=== PATIENT | female | born 1945 | race Caucasian/White ===

== ENCOUNTER 2020-10-13 15:42 | Outpatient (REF) | payer MEDICARE, SELFPAY ==
--- NOTE | ~2020-10-13 | MM_ITS ---
EXAMINATION: MM SCREENING DIGITAL BREAST TOMOSYNTHESIS, BILATERAL CLINICAL INFORMATION: Screening. Asymptomatic. The lifetime risk of breast cancer based on the Tyrer-Cuzick Model is 2%. COMPARISON: Mammography: 01/25/2019, 01/05/2018, 12/22/2016 TECHNIQUE: Digital breast tomosynthesis is performed in both the craniocaudal and mediolateral oblique views along with computer-aided detection (CAD). Synthesized 2D images are generated from the tomosynthesis. FINDINGS: There are scattered areas of fibroglandular density (ACR BI-RADS breast composition Category b). There are no significant masses, abnormal calcifications, or other abnormalities. Parenchymal pattern is similar to prior studies. The skin contours are unremarkable. MM/MM tomosynthesis screening BI IMPRESSION: No mammographic evidence of malignancy. ASSESSMENT: BI-RADS 1: Negative RECOMMENDATION: Routine annual mammography screening. This patient's information was entered into a reminder system with a target due date for their next mammogram.
== END 2020-10-13 15:43 | disposition home or self-care (01) ==
LOC: HO.MAMMO 15:42
PROVIDERS: PCP Internal Medicine; Visit Provider Internal Medicine
DX: Z12.31 Encounter for screening mammogram for malignant neoplasm of breast (principal)
CPT/HCPCS: 77063; 77067

== ENCOUNTER 2022-11-22 11:15 | Outpatient (REF) | payer MEDICARE, SELFPAY ==
--- NOTE | ~2022-11-22 | XR_ITS ---
EXAMINATION: XR SHOULDER, RIGHT CLINICAL INFORMATION: Right shoulder pain COMPARISON: None available. TECHNIQUE: AP external rotation, Grashey, scapular Y, and axillary views of the right shoulder. FINDINGS: There is no evidence of fractures or dislocations. There is narrowing of right glenohumeral joint an as well as degenerative changes in the greater tuberosity with subchondral cysts formation, and there is mild cephalad migration of the right humeral head, most likely due to rotator cuff tear. There are multiple amorphous soft tissue calcifications surrounding right shoulder. Acromioclavicular joint demonstrates no significant degenerative changes. XR/XR shoulder RT min 2V IMPRESSION: 1. 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 2. Multiple amorphous soft tissue calcifications in the right shoulder.
--- NOTE | ~2022-11-22 | XR_ITS ---
EXAMINATION: XR HIP, LEFT CLINICAL INFORMATION: Left hip pain COMPARISON: None available. TECHNIQUE: Two views of the left hip. FINDINGS: Bones and soft tissues are normal. There is minimal marginal spurring of the acetabulum but joint space is preserved. No fracture. Alignment is anatomic. Hip joint space is maintained. XR/XR hip LT min 2V IMPRESSION: Mild degenerative changes in the left hip joint.
== END 2022-11-22 11:16 | disposition home or self-care (01) ==
LOC: HO.XRAY 11:15
PROVIDERS: Visit Provider Internal Medicine
DX: M25.511 Pain in right shoulder (principal); M25.552 Pain in left hip
CPT/HCPCS: 73030; 73502

== ENCOUNTER 2023-03-31 15:37 | Outpatient (REF) | payer MEDICARE, SELFPAY ==
[2023-03-31 17:39] LABS: Appearance Urine Cloudy; Color Urine Yellow; Glucose Urine UA Negative (Negative); Leukocyte Esterase Urine Trace (Negative); Nitrite Urine Negative (Negative); Specific Gravity - Urine 1.015 (1.005-1.025); UMIC TRIGGER UA YES; Urine Blood Small (1+) (Negative); Urine Ketones Negative (Negative); Urine Protein Negative (Neg-Trace)
[2023-03-31 18:01] LABS: Bacteria Urine 4+ (None Seen); Hyaline Casts Urine 0-2 /LPF (0-2); RBC Urine 0-2 /HPF (0-2); Squamous Epithelial Cell Urine >20 /HPF (0-2); WBC Urine 0-5 /HPF (0-5)
== END 2023-03-31 15:38 | disposition home or self-care (01) ==
LOC: HO.CHCLDS 15:37
PROVIDERS: Visit Provider Internal Medicine
DX: N39.490 Overflow incontinence (principal)
CPT/HCPCS: 81001

== ENCOUNTER 2023-10-10 14:41 | Outpatient (REF) | payer MEDICARE, SELFPAY ==
[2023-10-10 16:16] LABS: MANUAL DIFF FLAG NO
[2023-10-10 16:19] LABS: Basophils Percent Auto 0.1 % (0-2); Eosinophils Percent Auto 0.2 % (0-4); Hematocrit 37.3 % (37.0-47.0); Hemoglobin 12.4 g/dl (12.0-16.0); Imm Gran Abs Auto 0.19 X10*3/uL (0.00-0.03); Imm Gran Pct Auto 1.8 % (0.0-0.4); Lymphocytes Absolute Auto 0.9 X10*3/uL (1.2-4.9); Lymphocytes Percent Auto 8.6 % (20-40); Mean Corpuscular HGB Conc 33.2 g/dl (31.0-35.0); Mean Corpuscular Hemoglobin 29.2 pg (27.0-33.0); Mean Corpuscular Volume 87.8 fL (80.0-98.0); Mean Platelet Volume 11.2 fL (9.4-12.3); Monocytes Absolute Auto 0.6 X10*3/uL (0.1-1.2); Monocytes Percent Auto 5.7 % (2-11); Neutrophils Percent Auto 83.6 % (45-73); Platelet Count 255 X10*3/uL (160-400); Red Blood Count 4.25 X10*6/uL (4.20-5.50); Red Cell Distribution Width 15.7 % (11.0-16.0); White Blood Count 10.8 X10*3/uL (4.8-10.8)
[2023-10-10 16:29] LABS: Anion Gap 12 (12-20); Blood Urea Nitrogen 17 mg/dL (9-16); Calcium 9.1 mg/dL (8.4-10.2); Carbon Dioxide 28 mmol/L (22-29); Chloride 103 mmol/L (96-108); Estimated Glomerular Filt Rate 57; Glucose Random 189 mg/dL (60-115); Sodium 139 mmol/L (135-145)
== END 2023-10-10 14:42 | disposition home or self-care (01) ==
LOC: HO.HHCL 14:41
PROVIDERS: Visit Provider Family Medicine
DX: I10 Essential (primary) hypertension (principal)
CPT/HCPCS: 36415; 80048; 85025

== ENCOUNTER 2023-10-31 10:32 | Outpatient (AMB) | payer MEDICARE, SELFPAY ==
--- NOTE | 2023-10-31 10:34 | MHC.OFFVIS ---
Vital Signs 10/31/23 10:41 Height 5 ft 1 in Weight 177 lb BMI 33.4 BP 144/70 H Blood Pressure Location Rt brachial Position Sitting Pulse 57 Intake Visit Reasons: hemorrhoids Intake Note: This patient was referred by for an assessment for hemorrhoids. Pt c/o; reports rectal bleeding, reports LLQ abdominal pain, reports no constipation. Books Binder Required: Yes Books Binder Language: Customer Experience Associate Name: Pt declined automation operator Accompanied by: Daughter Allergies No Known Allergies Allergy (Verified 10/31/23 10:44) Medication List - Last Reconciled 10/31/23 by Trent Smith MD albuterol sulfate 90 mcg/actuation inhalation albuterol sulfate mg inhalation aspirin 81 mg PO DAILY calcium carbonate-vitamin D3 500 mg-10 mcg (400 unit) (Calcium 500 With D) 1 tab PO DAILY fluticasone furoate 100 mcg/actuation (Arnuity Ellipta) 1 inh inhalation DAILY losartan 100 mg PO DAILY meclizine 12.5 mg PO BID HPI HPI hemorrhoids: Details: [age] year old female referred for hemorrhoids. Her daughter says that the patient wears diapers and she notices small amounts of blood on the diaper every day. This has been going for about 1 month. She says that this is not a lot of blood at all. The patient denies any pain or swelling. She denies any discomfort with her hemorrhoids She says that she had hemorrhoid surgery about 8 years ago. [facility] Medical History Internal and external bleeding hemorrhoids Asthma Hypertension Surgical History (Updated 10/31/23 @ 10:59 by Trent Smith MD) History of laparotomy History of hemorrhoidectomy (~10/14/15) Family History Sister Colon cancer Social History Alcohol intake: never Patient Tobacco Use Status: Never used Tobacco Review of Systems Const Denies chills and Denies fever(s) Card Denies chest pain, Denies dyspnea and Denies dyspnea on exertion Resp Denies cough, Denies dyspnea and Denies dyspnea on exertion GI Reports hematochezia and Denies change in bowel habits Denies hematuria Musc Denies back pain and Denies limited range of motion Neuro Denies focal weakness and Denies convulsions Psych Denies depression and Denies mood swings Physical Exam Const General: comfortable and no acute distress Orientation/consciousness: patient oriented x3 Neck Neck: Yes no lymphadenopathy Resp Auscultation: clear to auscultation bilaterally Cardio Rhythm: regular rhythm GI Other: Rectal exam shows hemorrhoids left and right with some prolapse Palpation (GI): Soft to palpation, nontender and no guarding Neuro General: patient oriented x3 Office Procedures Anoscopy She was in lexus-knife position. The anoscope was gently inserted. A full examination of the anal canal was done. She did have internal external hemorrhoids, left and right without bleeding or thrombosis. The internal component seems to prolapse bit. She has no tenderness. There was no induration on digital exam [id number] Assessment & Plan Assessment & Plan (1) Internal and external bleeding hemorrhoids: Code(s): K64.4 - Residual hemorrhoidal skin tags; K64.8 - Other hemorrhoids Category: Medical Plan: She notice small amounts of bright blood on the diaper every day. However, she says that this is not a lot at all. She describes this mostly as some staining. She says that she does not have any pain tenderness or any other discomfort with her hemorrhoids. She does not want to proceed with hemorrhoidectomy. I explained the option of hemorrhoidectomy and I discussed the technique of this procedure. The patient says that her symptoms are minimal. She would like to hold off on any surgical procedure Her daughter understand that they can always come back to the office to be re-evaluated down the line. Coding Level of Care Code New Pt Level 3 (76416) Diagnoses Internal and external bleeding hemorrhoids K64.4; K64.8 CPT Codes Details - CPT: [id number] ([id number])
[2023-10-31 10:41] VITALS: BP 144/70; PULSE 57; BMI 33.4
== END 2023-10-31 11:55 | disposition home or self-care (01) ==
PROVIDERS: PCP Internal Medicine; Referring Provider Internal Medicine; Visit Provider Surgery
DX: K64.8 Other hemorrhoids (principal)
CPT/HCPCS: 46600; 99203

== ENCOUNTER → 2023-10-31 10:32 | Outpatient (BNVA) | payer MEDICARE, SELFPAY | PROVIDERS: PCP Internal Medicine; Referring Provider Internal Medicine; Visit Provider Surgery | DX: K64.4 Residual hemorrhoidal skin tags (principal); K64.8 Other hemorrhoids | CPT/HCPCS: 46600; 99202 ==

== ENCOUNTER 2023-11-17 15:56 | Outpatient (REF) | payer MEDICARE, SELFPAY ==
[2023-11-17 18:18] LABS: Anion Gap 12 (12-20); Blood Urea Nitrogen 14 mg/dL (9-16); Calcium 9.4 mg/dL (8.4-10.2); Carbon Dioxide 27 mmol/L (22-29); Chloride 106 mmol/L (96-108); Estimated Glomerular Filt Rate > 60; Glucose Random 116 mg/dL (60-115); Potassium 3.9 mmol/L (3.3-5.1); Sodium 141 mmol/L (135-145)
== END 2023-11-17 15:57 | disposition home or self-care (01) ==
LOC: HO.CHCLDS 15:56
PROVIDERS: Visit Provider Internal Medicine
DX: I10 Essential (primary) hypertension (principal)
CPT/HCPCS: 36415; 80048

== ENCOUNTER 2024-06-25 10:52 | Outpatient (REF) | payer MEDICARE, SELFPAY ==
[2024-06-25 15:13] LABS: Appearance Urine Clear; Color Urine Yellow; Glucose Urine UA Negative (Negative); Leukocyte Esterase Urine Negative (Negative); Nitrite Urine Negative (Negative); Urine Blood Negative (Negative); Urine Ketones Negative (Negative); Urine Protein Negative (Neg-Trace)
[2024-06-25 15:16] LABS: Bacteria Urine None Seen (None Seen); Hyaline Casts Urine 0-2 /LPF (0-2); RBC Urine 0-2 /HPF (0-2); Squamous Epithelial Cell Urine 0-2 /HPF (0-2); WBC Urine 0-5 /HPF (0-5)
== END 2024-06-25 10:53 | disposition home or self-care (01) ==
LOC: HO.CHCLDS 10:52
PROVIDERS: Visit Provider Internal Medicine
DX: N39.498 Other specified urinary incontinence (principal)
CPT/HCPCS: 81001

== ENCOUNTER 2025-03-20 15:15 | Outpatient (REF) | payer MEDICARE, SELFPAY ==
--- OUTSIDE RECORDS SUMMARY | 2025-03-20 14:30 | XMS_ITS | Encounter Summary ---
Author Organization [employer] Address [address] [facility] [address] [place] [address] Care Team Providers Care Health Occupations Instructor Name Role Phone Daily Packer MD Primary Care Provider [phone] Encounter Details Date Type Department Care Team (Latest Contact Info) Description 03/20/2025 2:30 PM EDT Clinical Support [facility] [address] [place] [address] Encounter for immunization; Routine general medical examination at a health care facility Social History Tobacco Use Types Packs/Day Years Used Date Smoking Tobacco: Never Smokeless Tobacco: Never Depression Answer Date Recorded Patient Health Questionnaire-9 Score 7 02/22/2024 Patient Health Questionnaire-9 Score 7 02/22/2024 Last PHQ-9: Questionnaire Data Not on file 0 02/22/2024 Housing Stability Answer Date Recorded What is your housing situation today? I have cody segura 04/20/[address] you li ve. Do you have problems with any of the following? None of the above 04/20/2023 Food Insecurity Answer Date Recorded Within the past 12 months, y ou worried that your food would run out before you got money to buy more: Never True 04/20/2023 Within the past 12 months,th e food you bought just didn't last and you didn't have enough money to get more: Never True Transportation Answer Date Recorded In the past 12 months, has l ack of transportation kept you from medical appts, meetings, work or from getting things needed for daily living? No 04/20/2023 Utilities Answer Date Recorded In the past 12 months, has t he electric, gas, oil or water company threatened to shut off services in your home? No 04/20/2023 Depression Answer Date Recorded Patient Health Questionnaire-2 Score 3 02/22/2024 Internet Access Answer Date Recorded Internet Access Q1 Yes 03/19/2024 Internet Access Q2 Not on file 03/19/2024 Comments Unknown Sex and Gender Information Value Date Recorded Sex Assigned at Female 05/03/2022 10:20 AM EDT Legal Sex Female 10:20 AM EDT Gender Identity Female 05/03/2022 10:20 AM EDT Sexual Orientation Straight 05/03/2022 10 :20 AM EDT documented as of this encounter Plan of Treatment Upcoming Encounters Date Type Department Care Team (Late st Contact Info) Description 04/01/2025 9:30 AM EDT Office Visit [facility] [address] [place] [address] Daily Packer MD [address] [place] [address] Scheduled Orders Name Type Priority Associated Diagnoses Orde r Schedule T-SPOT .TB Lab Routine Routine general medical examination at a health care facility Expected: 03/20/2025 (Approximate), Expires: 03/20/2026 documented as of this encounter Visit Diagnoses Diagnosis Encounter for immunization Routine general medical examination at a health care facility documented in this encounter Additional Health Concerns Assessment Noted Time PHQ-9 Depression Total Score: 7 02/22/20 24 3:07 PM EDT documented as of this encounter Care Teams Health Occupations Instructor Relationship Specialty Start Date End Date Daily Packer MD [address] [place] [address] PCP - General Internal Medicine 08/09/16 documented as of this encounter
--- OUTSIDE RECORDS SUMMARY | 2025-03-20 18:45 | XMS_ITS | Encounter Summary ---
Author Organization [facility] Address [address] [place] [address] [address], [place] [address] Care Team Providers Care Project Development Engineer Name Role Phone Daily Packer MD Primary Care Provider [phone] Encounter Details Date Type Department Care Team (Late st Contact Info) Description 09/27/2022 Orders Only [facility] [address] [place], [place] [id number] Jennifer Su LPN Social History Tobacco Use Types Packs/Day Years Used Date Smoking Tobacco: Never Assessed Comments Unknown Sex and Gender Information Value Date Recorded Sex Assigned at Female 05/03/2022 10:20 AM EDT Legal Sex Female 10:20 AM EDT Gender Identity Female 05/03/2022 10:20 AM EDT Sexual Orientation Straight 05/03/2022 10 :20 AM EDT COVID-19 Exposure Response Date Recorded In the last 10 days, have yo u been in contact with someone who was confirmed or suspected to have Coronavirus/COVID-19? No / Unsure 09/30/2022 3:15 PM EDT documented as of this encounter Plan of Treatment Upcoming Encounters Date Type Department Care Team (Late st Contact Info) Description 04/01/2025 9:30 AM EDT Office Visit [facility] [address] [place] [address] Daily Packer MD [address] [place] [address] documented as of this encounter Visit Diagnoses Not on filedocumented in this encounter Care Teams Project Development Engineer Relationship Specialty Start Date End Date Daily Packer MD [address] [place] [id number] PCP - General Internal Medicine 08/09/16 documented as of this encounter
--- OUTSIDE RECORDS SUMMARY | 2025-03-20 18:45 | XMS_ITS | Encounter Summary ---
Author Organization [employer] Address [address] [facility] [address] [place] [address] Care Team Providers Care Women'S Garment Fitter Name Role Phone Daily Packer MD Primary Care Provider [phone] Encounter Details Date Type Department Care Team ([facility] st Contact Info) Description 05/18/2023 Orders Only [facility]S [address] [place], [place] [id number] Daily Packer MD [address] [place] [address] Moderate persistent asthma without complication (Primary Dx) Social History Tobacco Use Types Packs/Day Years Used Date Smoking Tobacco: Never Smokeless Tobacco: Never Housing Stability Answer Date Recorded What is your housing situation today? I have codykenny segura 04/20/[address] you [...] off services in your home? No 04/20/2023 Comments Unknown Sex and Gender Information Value Date Recorded Sex Assigned at Female 05/03/2022 10:20 AM EDT Legal Sex Female 10:20 AM EDT Gender Identity Female 05/03/2022 10:20 AM EDT Sexual Orientation Straight 05/03/2022 10 :20 AM EDT documented as of this encounter Plan of Treatment Upcoming Encounters Date Type Department Care Team ([facility] st Contact Info) Description 04/01/2025 9:30 AM EDT [facility] [address] [place] [address] Daily Packer MD [address] [place] [address] documented as of this encounter Visit Diagnoses Diagnosis Moderate persistent asthma without complication- Primary documented in this encounter Care Teams Women'S Garment Fitter Relationship Specialty Start Date End Date Daily Packer MD [address] [place] [address] PCP - General Internal Medicine 08/09/16 documented as of this encounter
--- OUTSIDE RECORDS SUMMARY | 2025-03-20 18:45 | XMS_ITS | Encounter Summary ---
Author Organization [employer] [facility] Address [address] [place] [id number] Care Team Providers Care Platform Power Technician Name Role Phone Daily Packer MD Primary Care Provider [phone] Encounter Details Date Type Department Care Team (Late st Contact Info) Description 02/07/2023 Orders Only [facility] [address] [place] [address] Jennifer Su LPN Social History Tobacco Use Types Packs/Day Years Used Date Smoking Tobacco: Never Smokeless Tobacco: Never Comments Unknown Sex and Gender Information Value [...] Description 04/01/2025 9:30 AM EDT Office Visit [facility] [address] [place] [address] Daily Packer MD [address] [place] [address] documented as of this encounter Visit Diagnoses Not on filedocumented in this encounter Care Teams Platform Power Technician Relationship Specialty Start Date End Date Daily Packer MD [address] [place] [address] PCP - General Internal Medicine 08/09/16 documented as of this encounter
--- OUTSIDE RECORDS SUMMARY | 2025-03-20 18:45 | XMS_ITS | Clinical Summary ---
Author Organization [employer] Address [address] [place] [address] [address] [place] [address] Care Team Providers Care Director Blood Bank Name Role Phone Daily Packer MD Primary Care Provider +1- [phone] Allergies No known active allergies Medications hydroCHLOROthia zide (HYDRODiuril) 12.5 MG tablet TOME SOLEDAD TABLETA TODOS [place] 90 tablet 3 12/02/19 23 Active acetaminophen (Tylenol 8 Hour) 650 MG ER tablet Take 1 tablet by mouth every 6 (six) hours if needed for mild pain. 03/20/20 23 Active docusate sodium (Colace) 100 MG capsule Take 1 capsule by mouth 2 times daily. 03/20/20 23 Active albuterol (2.5 MG/3ML) 0.083% nebulizer solutionIndicat ions:Moderate persistent asthma without complication Take 3 mL (2.5 mg) by nebulization every 4 (four) hours if needed for wheezing. 75 mL 11 06/30/20 23 Active meclizine (Antivert) 12.5 MG tabletIndicatio ns:Dizziness TOME SOLEDAD TABLETA DOS VECES AL D A CUANDO SEA NECESARIO 30 tablet 3 06/30/20 23 Active albuterol (Ventolin HFA) 108 (90 Base) MCG/ACT inhalerIndicati ons:Moderate persistent asthma without complication INHALE 2 PUFF BY INHALATION ROUTE ONCE NEEDED 18 g 11 07/01/20 23 Active Oyster Shell Calcium/D3 500-10 MG-MCG tabletIndicatio ns:Vitamin D deficiency TOME SOLEDAD TABLETA TODOS [place] 90 tablet 4 10/10/19 24 Active fluticasone furoate (Arnuity Ellipta) 100 MCG/ACT inhaler Inhale 1 puff in the morning. Rinse mouth with water after use to reduce aftertaste and incidence of candidiasis. Do not swallow. 1 each 11 10/10/19 24 Active hydrocortisone (Anusol-HC) 2.5 % rectal cream Insert into the rectum 2 times daily. 28 g 3 10/10/19 24 Active Diclofenac Sodium 1 % gelIndications: Moderate persistent asthma without complication To apply to the affected area 3 times a day 100 g 12/12/19 24 Active Aspirin Low Dose 81 MG EC tablet TOME SOLEDAD TABLETA TODOS [place] 90 tablet 3 09/14/19 25 Active losartan (Cozaar) 100 MG tabletIndicatio ns:Essential hypertension TAKE 1 TABLET (100 MG) BY MOUTH ONCE PER DAY. 90 tablet 3 11/06/19 25 Active furosemide (Lasix) 20 MG tabletIndicatio ns:Essential hypertension TAKE 1 TABLET (20 MG) BY MOUTH ONCE PER DAY. 90 tablet 1 11/29/19 25 Active amLODIPine (Norvasc) 5 MG tabletIndicatio ns:Essential hypertension TAKE 1 TABLET (5 MG) BY MOUTH ONCE PER DAY. 90 tablet 3 03/19/20 25 Active cholecalciferol (D3-1000) 25 MCG (1000 UT) tablet TAKE 1 TABLET BY MOUTH EVERY DAY 90 tablet 3 03/19/20 25 Active amLODIPine (Norvasc) 5 MG tabletIndicatio ns:Essential hypertension Take 1 tablet (5 mg) by mouth Once per day. 30 tablet 11 03/26/20 24 2024 Discontinued cholecalciferol (D3-1000) 25 MCG (1000 UT) tablet TAKE 1 TABLET BY MOUTH EVERY DAY 90 tablet 3 04/05/20 24 2024 Discontinued Active Problems Problem Noted Date Diagnosed Date Functional urinary incontinence 09/14/2024 Foot mass, left 10/10/2023 Assessment & Plan (10/10/2023 6:09 PM EDT): - painless, but growing in size - refer to orthopedist for excisional biopsy Hemorrhoids 10/10/2023 Assessment & Plan (10/10/2023 6:11 PM EDT): - avoid prolonged sitting - doughnut pillow / cushion - sitz bath - hydrocortisone topical - refer to colorectal surgeon Class 2 obesity 09/30/2022 Obesity 09/30/2022 Asthma 09/27/2011 Assessment & Plan (10/10/2023 6:26 PM EDT): - Recent exacerbation requiring hospitalization 10/02/23 - 10/04/23 - Treated with methylprednisolone initially, which was changed to prednisone - completed prednisone - previously on fluticasone (Flovent). Will switch to another fluticasone (Arnuity) due to insurance formulary. - continue albuterol HFA prn Essential hypertension 09/27/2011 Assessment & Plan (10/10/2023 6:05 PM EDT): -Goal BP < 150/90 per JNC-8 and < 130/80 per ACC/AHA guideline (Treatment threshold >=140/90) -Patient has not taken either losartan or hctz, on hold since recent hospitalization with [facility] due to hypoperfusion -Continue working on lifestyle modifications -Recommended self-monitoring BP and bring home blood pressure measurements to next appointment with her PCP. -Recheck lab today. If renal function improves, then will consider restarting losartan at lower dose. -Schedule a follow up with PCP in 1 mo. Shoulder joint pain 09/27/2011 Vitamin D deficiency 09/27/2011 Resolved Problems Problem Noted Date Diagnosed Date Resolved Date Chest pain 09/27/2011 10/10/2023 Encounters Date Type Department Care Team Description 03/20/2025 2:30 PM EDT Clinical Support [facility] [address] [place] [address] Encounter for immunization; Routine general medical examination at a health care facility 03/20/2025 Travel 03/20/2025 Telephone [facility] [address] [place] [address] Daily Packer MD Lab Orders 03/19/2025 Refill [facility] [address] [place] [address] Daily Packer MD Essential hypertension 02/21/2025 Telephone [facility] [address] [place] [address] Daily Packer MD form 02/20/2025 Orders Only [facility] [address] [place] [address] Daily Packer MD Annual physical exam (Primary Dx) from Last 3 Months Immunizations Immunization Administration Dates Next Due Influenza High-dose Quadriva lent Preservative Free 03/31/2023,03/31/2021 Influenza injectable quadriv alent IIV4 with preservative 04/06/2018,05/24/2016 Influenza, High Dose Seasona l, Preservative Free 03/26/2024,02/25/2020,04/05/2019,04/07 Influenza, Split (incl. lino fied surface antigen) 05/09/2013,05/09/2012 Pneumococcal Conjugate PCV 13 08/20/2014 Pneumococcal Polysaccharide PPSV23 10/23/2015 RSV Bivalent 03/19/2024 RSV-MAB, Unspecified 03/19/2024 Tdap 03/20/2025,10/23/2015 Zoster, live 09/03/2014 Social History Tobacco Use Types Packs/Day Years Used Date Smoking Tobacco: Never Smokeless Tobacco: Never Tobacco Cessation:Counseling Given: No Depression Answer Date Recorded Patient Health Questionnaire-9 [...] Orientation Straight 05/03/2022 10 :20 AM EDT Last Filed Vital Signs Vital Sign Reading Time Taken Comments Blood Pressure 118/69 09/24/2024 2:29 PM EDT Pulse 61 09/24/2024 2:29 PM EDT Temperature 36.6 C (97.9 F) 09/24/2024 2:29 PM EDT Respiratory Rate 20 09/24/2024 2:29 PM EDT Oxygen Saturation 98% 09/24/2024 2:29 PM EDT Inhaled Oxygen Concentration - - Weight 80.3 kg (177 lb) 09/24/2024 2:29 PM EDT Height 147.3 cm (4' 10 ) 09/24/2024 2:29 PM EDT Body Mass Index 36.99 09/24/2024 2:29 PM EDT Plan of Treatment Upcoming Encounters Date Type Department Care Team (Late st Contact Info) Description 04/01/2025 9:30 AM EDT Office Visit [facility] [address] [place] [address] Daily Packer MD [address] [place] [address] Health Maintenance Due Date Last Done Comments Alcohol/Substance Use Screening 1957 Zoster Vaccines (2 of 3) 10/29/2014 09/03/2014 Depression Screening 02/21/2025 02/22/2024, 02/22/20 24 COVID-19 Vaccine ( season) 2025 03/19/2024, 03/12/2022, 06/02/2021, Additional history exists Influenza Vaccine (#1) 2025 , 03/31/2023, 03/31/2023, Additional history exists SDOH Screening 09/17/2025 09/17/2024 Tobacco Screening 09/24/2025 09/24/2024 Lipid Panel 11/23/2027 11/22/2022, 11/23/2021 DTaP/Tdap/Td Vaccines (3 - Td or Tdap) 03/20/2035 03/20/2025, 10/23/2015 Pneumococcal Vaccine: 50+ Years Completed 10/23/2015, 08/20/2014 RSV Patients and Patients Aged 60 years or older Completed 03/19/2024 RSV under 20 months Aged Out 03/19/2024 No longe r eligible based on patient's age to complete this topic HIB Vaccines Aged Out No longer eligi ble based on patient's age to complete this topic HPV Vaccines Aged Out No longer eligi ble based on patient's age to complete this topic Hepatitis A Vaccines Aged Out No long er eligible based on patient's age to complete this topic Hepatitis B Vaccines Aged Out No long er eligible based on patient's age to complete this topic IPV Vaccines Aged Out No longer eligi ble based on patient's age to complete this topic Meningococcal B Vaccine Aged Out No l onger eligible based on patient's age to complete this topic Meningococcal Vaccine Aged Out No ivette roxanna eligible based on patient's age to complete this topic Rotavirus Vaccines Aged Out No longer eligible based on patient's age to complete this topic Procedures Procedure Name Priority Date/Time Associated Diagnosis Comments LIPID PANEL, STANDARD Routine 11/22/2022 10:04 AM EDT Essential hypertension from Last 3 Months or Most Recently Relevant to Health Maintenance Results * (ABNORMAL) Lipid Panel, Standard (11/22/2022 10:04 AM EDT) Cholesterol, Total 151 <200 mg/dL [facility] HDL Cholesterol 41(L) > OR = 50 mg/dL [facility] Triglycerides 94 <150 mg/dL [facility] LDL Cholesterol 91 mg/dL (calc) [facility] Comment: Reference range: <100 Desirable range <100 mg/dL for primary prevention; <70 mg/dL for patients with CHD or diabetic patients with > or = 2 CHD risk factors. LDL-C is now calculated using the Beatriz calculation, which is a validated novel method providing better accuracy than the Friedewald equation in the estimation of LDL-C. Zen MABRY et al. JIE. 2013;310(19): 7058-1065 (http://education.Evtron.Valutao/faq/NNX245) Chol/HDLC Ratio 3.7 <5.0 (calc) [facility] Non-HDL Cholesterol 110 <130 mg/dL (calc) [facility] Comment: For patients with diabetes plus 1 major ASCVD risk factor, treating to a non-HDL-C goal of <100 mg/dL (LDL-C of <70 mg/dL) is considered a therapeutic option. Blood Venous blood specimen / Unknown 11/22/2022 10:04 AM EDT 11/22/2022 10:04 AM EDT Narrative [facility] - 11/23/2022 8:01 AM EDT FASTING:YES FASTING: YES Daily Packer MD LAB BLOOD ORDERABLES Final Result [facility] [address], [place] [address] [facility] [address] [place] [address] from Last 3 Months or Most Recently Relevant to Health Maintenance Insurance [employer] (HMO D-SNP) [place] [id number] Care Teams Director Blood Bank Relationship Specialty Start Date End Date Daily Packer MD [address] [place] [id number] PCP - General Internal Medicine 08/09/16
--- OUTSIDE RECORDS SUMMARY | 2025-03-20 18:45 | XMS_ITS | Encounter Summary ---
Author Organization [employer] [facility] Address [address] [place] [address] [address] [place] [address] Care Team Providers Care Sports Therapist Name Role Phone Daily Packer MD Primary Care Provider +1- [phone] Encounter Details Date Type Department Care Team ([facility] Contact Info) Description 01/03/2023 Orders Only [facility] [address] [place], [place] [phone] Daily Packer MD [address] [place] [address] Left inguinal pain (Primary Dx) Social History Tobacco Use Types [...] suspected to have Coronavirus/COVID-19? No / Unsure 01/03/2023 10:16 AM EDT documented as of this encounter Plan of Treatment Upcoming Encounters Date Type Department Care Team (Late Contact Info) Description 04/01/2025 9:30 AM EDT Office Visit [facility] [address] [place], [place] [phone] Dialy Packer MD [address] [place], [place] [phone] documented as of this encounter Visit Diagnoses Diagnosis Left inguinal pain- Primary Abdominal pain, left lower quadrant documented in this encounter Care Teams Sports Therapist Relationship Specialty Start Date End Date Daily Packer MD [address] [place] [address] PCP - General Internal Medicine 08/09/16 documented as of this encounter
--- OUTSIDE RECORDS SUMMARY | 2025-03-20 18:45 | XMS_ITS | Encounter Summary ---
Author Organization [facility] Address [address] [place] [address] Care Team Providers Care Verification Lead Name Role Phone Daily Packer MD Primary Care Provider +1- [phone] Reason for Visit * Reason Comments Med Change Request Encounter Details Date Type Department Care Team ([facility] Contact Info) Description 02/08/2023 Refill [facility] [address] [place] [address] Daily Packer MD [address] [place] [address] Mild persistent asthma without complication (Primary Dx) Social [...] Description 04/01/2025 9:30 AM EDT Office Visit [facility] [address] [place] [address] Daily Packer MD [address] [place] [address] documented as of this encounter Visit Diagnoses Diagnosis Mild persistent asthma without complication- Primary documented in this encounter Care Teams Verification Lead Relationship Specialty Start Date End Date Daily Packer MD [address] [place] [address] PCP - General Internal Medicine 08/09/16 documented as of this encounter
--- OUTSIDE RECORDS SUMMARY | 2025-03-20 18:45 | XMS_ITS | Encounter Summary ---
Author Organization [employer] Address [address] [facility] 7t [place] [address] Care Team Providers Care Tavern Keeper Name Role Phone Daily Packer MD Primary Care Provider +1 [phone] Encounter Details Date Type Department Care Team (Late st Contact Info) Description 02/23/2024 Orders Only [facility] [address] [place] [address] Daily Packer MD [address] [place] [address] Social History Tobacco Use Types Packs/Day Years [...] Recorded Patient Health Questionnaire-2 Score 3 02/22/2024 Comments Unknown Sex and Gender Information Value [...] Description 04/01/2025 9:30 AM EDT Office Visit [facility] [address] [place] [address] Daily Packer MD [address] [place] [address] documented as of this encounter Visit Diagnoses Not on filedocumented in this encounter Additional Health Concerns Assessment Noted Time PHQ-9 Depression Total Score: 7 02/22/20 24 3:07 PM EDT documented as of this encounter Care Teams Tavern Keeper Relationship Specialty Start Date End Date Daily Packer MD [address] [place] [address] PCP - General Internal Medicine 08/09/16 documented as of this encounter
--- OUTSIDE RECORDS SUMMARY | 2025-03-20 18:45 | XMS_ITS | Encounter Summary ---
Author Organization [employer] Address [address] [facility] 7t [place] [address] Care Team Providers Care Invasive Cardiovascular Technologist Name Role Phone Daily Packer MD Primary Care Provider +1 [phone] Encounter Details Date Type Department Care Team (Late st Contact Info) Description 09/14/2024 Orders Only [facility] [address] [place] [address] Daily Packer MD [address] [place] [address] Functional urinary incontinence Social History Tobacco Use Types Packs/Day Years [...] Description 04/01/2025 9:30 AM EDT Office Visit [facility] [address] [place] [address] Daily Packer MD [address] [place] [address] documented as of this encounter Visit Diagnoses Diagnosis Functional urinary incontinence documented in this encounter Additional Health Concerns Assessment Noted Time PHQ-9 Depression Total Score: 7 02/22/20 24 3:07 PM EDT documented as of this encounter Care Teams Invasive Cardiovascular Technologist Relationship Specialty Start Date End Date Daily Packer MD [address] [place] [address] PCP - General Internal Medicine 08/09/16 documented as of this encounter
--- OUTSIDE RECORDS SUMMARY | 2025-03-20 18:45 | XMS_ITS | Encounter Summary ---
Author Organization [employer] [facility] Address [address] [place] [address] Care Team Providers Care Scrap Drop Operator Name Role Phone Daily Packer MD Primary Care Provider +1- [phone] Encounter Details Date Type Department Care Team (Latest Contact Info) Description 08/04/2018 Abstract [facility] CONVERSION[facility] Dental, Provider, DDS Social History Tobacco Use Types Packs/Day Years [...] Description 04/01/2025 9:30 AM EDT Office Visit [facility] [address] [place] [address] Daily Packer MD [address] [place] [address] documented as of this encounter Visit Diagnoses Not on filedocumented in this encounter Care Teams Scrap Drop Operator Relationship Specialty Start Date End Date Daily Packer MD [address] [place] [address] PCP - General Internal Medicine 08/09/16 documented as of this encounter
--- OUTSIDE RECORDS SUMMARY | 2025-03-20 18:45 | XMS_ITS | Encounter Summary ---
Author Organization [employer] Address [address] [facility] 7 [place] [address] Care Team Providers Care Manager Cardiovascular Name Role Phone Daily Packer MD Primary Care Provider +1- [phone] Reason for Visit * Reason Onset Date Comments form 02/21/2025 Encounter Details Date Type Department Care Team ([facility] Contact Info) Description 02/21/2025 Telephone [facility] [address] [place], [place] [phone] Daily Packer MD [address] [place] [address] form Social History Tobacco Use Types Packs/Day Years [...] AM EDT documented as of this encounter Miscellaneous Notes * Telephone Encounter - Pamela Edge - 02/21/2025 8:59 AM EDT [facility] requesting for pcp form to be faxed back as soon as it can be ,due to pt getting an extension and can not continue to attend day program without form Contact Sabina at [phone] documented in this encounter Plan of Treatment Upcoming Encounters Date Type Department Care Team (Late st Contact Info) Description 04/01/2025 9:30 AM EDT Office Visit [facility] [address] [place] [address] Daily Packer MD [address] [place] [address] documented as of this encounter Visit Diagnoses Not on filedocumented in this encounter Additional Health Concerns Assessment Noted Time PHQ-9 Depression Total Score: 7 02/22/20 24 3:07 PM EDT documented as of this encounter Care Teams Manager Cardiovascular Relationship Specialty Start Date End Date Daily Packer MD [address] [place] [address] PCP - General Internal Medicine 2/6/17 documented as of this encounter
--- OUTSIDE RECORDS SUMMARY | 2025-03-20 18:45 | XMS_ITS | Encounter Summary ---
Author Organization [employer] Address [address] [facility] 7t [place] [address] Care Team Providers Care Impregnator And Drier Helper Name Role Phone Daily Packer MD Primary Care Provider +1- [phone] Reason for Visit * Reason Onset Date Comments Appointment Request 12/06/2023 Encounter Details Date Type Department Care Team ([facility] st Contact Info) Description 12/06/2023 Telephone [facility] [address] [place] [address] Daily Packer MD [address] [place] [address] Appointment Request Social History Tobacco Use Types Packs/Day Years [...] encounter Miscellaneous Notes * Telephone Encounter - Anni Jha - 12/06/2023 3:24 PM EDT Tc from pt daughter requesting appt with PCP per last visit notes, auto service writer don't have open spaces before February. documented in this encounter Plan of Treatment Upcoming Encounters Date Type Department Care Team (Late st Contact Info) Description 04/01/2025 9:30 AM EDT Office Visit [facility] [address] [place] [address] Daily Packer MD [address] [place] [address] documented as of this encounter Visit Diagnoses Not on filedocumented in this encounter Care Teams Impregnator And Drier Helper Relationship Specialty Start Date End Date Daily Packer MD [address] [place] [address] PCP - General Internal Medicine 08/09/16 documented as of this encounter
--- OUTSIDE RECORDS SUMMARY | 2025-03-20 18:45 | XMS_ITS | Encounter Summary ---
Author Organization [employer] Address [address] [facility] 7 [place] [address] Care Team Providers Care Tack Puller Machine Name Role Phone Daily Packer MD Primary Care Provider +1- [phone] Reason for Visit * Reason Onset Date Comments Lab Orders 03/20/2025 Encounter Details Date Type Department Care Team ([facility] st Contact Info) Description 03/20/2025 Telephone [facility] [address] [place], [place] [phone] Daily Packer MD [address] [place] [address] Lab Orders Social History Tobacco Use Types Packs/Day Years [...] encounter Miscellaneous Notes * Telephone Encounter - Melony Rasmussen RN - 03/20/2025 4:19 PM EDT TC to pt daughter and scheduled nurse visit today. Pt daughter verbalized understanding and agreement with plan. * Telephone Encounter - Leonardo Levin - 03/20/2025 11:15 AM EDT Tc from fariha pt daughter requesting a tdap for a program. Fariha requested for the tdap to be kaz. Contact fariha at [phone]. documented in this encounter Plan of Treatment Upcoming Encounters Date Type Department Care Team (Late st Contact Info) Description 04/01/2025 9:30 AM EDT Office Visit [facility] [address] [place] [address] Daily Packer MD [address] [place] [address] documented as of this encounter Visit Diagnoses Not on filedocumented in this encounter Additional Health Concerns Assessment Noted Time PHQ-9 Depression Total Score: 7 02/22/20 24 3:07 PM EDT documented as of this encounter Care Teams Tack Puller Machine Relationship Specialty Start Date End Date Daily Packer MD [address] [place] [address] PCP - General Internal Medicine 08/09/16 documented as of this encounter
--- OUTSIDE RECORDS SUMMARY | 2025-03-20 18:45 | XMS_ITS | Encounter Summary ---
Author Organization [employer] Address [address] [facility] 7t [place] [address] Care Team Providers Care Securities Broker Name Role Phone Daily Packer MD Primary Care Provider +1- [phone] Encounter Details Date Type Department Care Team ([facility] st Contact Info) Description 02/20/2025 Orders Only [facility] [address] [place], [place] [phone] Daily Packer MD [address] [place] [address] Annual physical exam (Primary Dx) Social History Tobacco Use Types [...] Upcoming Encounters Date Type Department Care Team ([facility] st Contact Info) Description 04/01/2025 9:30 AM EDT Office Visit [facility] [address] [place] [address] Daily Packer MD [address] [place] [address] Scheduled Orders Name Type Priority Associated Diagnoses Orde r Schedule T-SPOT .TB Lab Routine Annual physical exam Expected: 02/20/2025 (Approximate), Expires: 02/20/2026 documented as of this encounter Visit Diagnoses Diagnosis Annual physical exam- Primary Routine general medical examination at a health care facility documented in this encounter Additional Health Concerns Assessment Noted Time PHQ-9 Depression Total Score: 7 02/22/20 24 3:07 PM EDT documented as of this encounter Care Teams Securities Broker Relationship Specialty Start Date End Date Daily Packer MD [address] [place] [address] PCP - General Internal Medicine 08/09/16 documented as of this encounter
--- OUTSIDE RECORDS SUMMARY | 2025-03-20 18:45 | XMS_ITS | Encounter Summary ---
Author Organization [employer] Address [address] [facility] 7t [place] [address] Care Team Providers Care Social Welfare Research Worker Name Role Phone Daily Packer MD Primary Care Provider [phone]- [phone] Reason for Visit * Reason Onset Date Comments pcp order form 06/21/2024 Encounter Details Date Type Department Care Team ([facility] st Contact Info) Description 06/21/2024 Telephone [facility] MEDICINE [address] [place] [address] Daily Packer MD [address] [place] [address] pcp order form Social History Tobacco Use Types Packs/Day [...] encounter Miscellaneous Notes * Telephone Encounter - Tami García RN - 06/21/2024 10:14 AM EST Noted thanks. * Telephone Encounter - Lottie Hernandez - 06/21/2024 8:45 AM EST Tc from Mayra with [facility] requesting pcp order form that was sent over on 05/09/2024 [facility] gets signed by PCP and fax back to [facility]. [facility] Mayra FAX [phone] documented in this encounter Plan of Treatment Upcoming Encounters Date Type Department Care Team (Late st Contact Info) Description 04/01/2025 9:30 AM EDT Office Visit [facility] CHC MED & PEDS [address] [place] [address] Daily Packer MD [address] [place] [address] documented as of this encounter Visit Diagnoses Not on filedocumented in this encounter Additional Health Concerns Assessment Noted Time PHQ-9 Depression Total Score: 7 02/22/20 24 3:07 PM EDT documented as of this encounter Care Teams Social Welfare Research Worker Relationship Specialty Start Date End Date Daily Packer MD [address] [place] [address] PCP - General Internal Medicine 08/09/16 documented as of this encounter
--- OUTSIDE RECORDS SUMMARY | 2025-03-20 18:45 | XMS_ITS | Encounter Summary ---
Author Organization [employer] [facility] Address [address] [place] [address] Care Team Providers Care Rat Poisoner Name Role Phone Daily Packer MD Primary Care Provider [phone]- [phone] Encounter Details Date Type Department Care Team (Late Contact Info) Description 03/17/2023 [facility] Information Management [address] [place], [place] [phone] Daily Packer MD [address] [place] [address] Social History Tobacco Use Types Packs/Day Years [...] Description 04/01/2025 9:30 AM EDT Office Visit [facility] CHC MED & PEDS [address] [place], [place] [phone] Daily Packer MD [address] [place] [address] documented as of this encounter Visit Diagnoses Not on filedocumented in this encounter Care Teams Rat Poisoner Relationship Specialty Start Date End Date Daily Packer MD [address] [place] [address] PCP - General Internal Medicine 08/09/16 documented as of this encounter
--- OUTSIDE RECORDS SUMMARY | 2025-03-20 18:45 | XMS_ITS | Encounter Summary ---
Author Organization [employer] Address [address] [facility] 7t [place] [address] Care Team Providers Care Leather Fitter Name Role Phone Daily Packer MD Primary Care Provider [phone] Encounter Details Date Type Department Care Team (Late st Contact Info) Description 11/30/2024 Orders Only [facility] Information Management [address] [place] [address] ProviderDavid MD Social History Tobacco Use Types Packs/Day Years [...] Upcoming Encounters Date Type Department Care Team ([facility] st Contact Info) Description 04/01/2025 9:30 AM EDT Office Visit [facility] CHC MED & PEDS [address] [place] [address] Daily Packer MD [address] [place] [address] documented as of this encounter Procedures Procedure Name Priority Date/Time Associated Diagnosis Comments XR NECK SOFT TISSUE Routine 11/29/2024 9:50 AM EDT XR NECK SOFT TISSUE Routine 11/29/2024 9:50 AM EDT documented in this encounter Results * XR Neck Soft Tissue (11/29/2024 9:50 AM EDT) Anatomical Region Laterality Modality Head, Neck Radiographic Micaela ging Historical Provider MD AYON XR PROCEDURES Final R esult * XR Neck Soft Tissue (11/29/2024 9:50 AM EDT) Anatomical Region Laterality Modality Head, Neck Radiographic Micaela ging us Historical Provider MD AYON XR PROCEDURES Final R esult documented in this encounter Visit Diagnoses Not on filedocumented in this encounter Additional Health Concerns Assessment Noted Time PHQ-9 Depression Total Score: 7 02/22/20 24 3:07 PM EDT documented as of this encounter Care Teams Leather Fitter Relationship Specialty Start Date End Date Daily Packer MD [address] [place] [address] PCP - General Internal Medicine 08/09/16 documented as of this encounter
--- OUTSIDE RECORDS SUMMARY | 2025-03-20 18:45 | XMS_ITS | Encounter Summary ---
Author Organization [employer] Address [address] [facility] 7t [place] [address] Care Team Providers Care Data Management Manager Name Role Phone Daily Packer MD Primary Care Provider [phone]- [phone] Reason for Visit * Reason Comments Med Refill Encounter Details Date Type Department Care Team ([facility] Contact Info) Description 03/19/2025 Refill [facility] CHC MED & PEDS [address] [place], [place] [phone] Daily Packer MD [address] [place] [address] Essential hypertension Social History Tobacco Use Types Packs/Day Years [...] Upcoming Encounters Date Type Department Care Team ([facility] st Contact Info) Description 04/01/2025 9:30 AM EDT Office Visit [facility] MED & PEDS [address] [place] [address] Daily Packer MD [address] [place] [address] documented as of this encounter Visit Diagnoses Diagnosis Essential hypertension Unspecified essential hypertension documented in this encounter Additional Health Concerns Assessment Noted Time PHQ-9 Depression Total Score: 7 02/22/20 24 3:07 PM EDT documented as of this encounter Care Teams Data Management Manager Relationship Specialty Start Date End Date Daily Packer MD [address] [place] [address] PCP - General Internal Medicine 08/09/16 documented as of this encounter
--- OUTSIDE RECORDS SUMMARY | 2025-03-20 18:45 | XMS_ITS | Encounter Summary ---
Author Organization [employer] Address [address] [facility] 7t [place] [address] Care Team Providers Care Classified Advertising Clerk Name Role Phone Daily Packer MD Primary Care Provider [phone] Encounter Details Date Type Department Care Team (Latest Contact Info) Description 03/20/2025 Travel Social History Tobacco Use Types Packs/Day Years [...] [facility] MED & PEDS [address] [place] [address] Daily Packer MD [address] [place] [address] documented as of this encounter Visit Diagnoses Not on filedocumented in this encounter Additional Health Concerns Assessment Noted Time PHQ-9 Depression Total Score: 7 02/22/20 24 3:07 PM EDT documented as of this encounter Care Teams Classified Advertising Clerk Relationship Specialty Start Date End Date Daily Packer MD [address] [place] [address] PCP - General Internal Medicine 08/09/16 documented as of this encounter
--- OUTSIDE RECORDS SUMMARY | 2025-03-20 18:45 | XMS_ITS | Encounter Summary ---
Author Organization [employer] [facility] Address [address] [place] [address] Care Team Providers Care Pediatric Physical Therapy Assistant Name Role Phone Daily Packer MD Primary Care Provider [phone]- [phone] Reason for Visit * Reason Comments Med Refill Encounter Details Date Type Department Care Team ([facility] Contact Info) Description 07/23/2022 Refill [facility] MED & PEDS [address] [place] [address] Daily Packer MD [address] [place] [address] Vitamin D deficiency (Primary Dx) Social History Tobacco Use Types [...] Upcoming Encounters Date Type Department Care Team ([facility] Contact Info) Description 04/01/2025 9:30 AM EDT Office Visit [facility] CHC MED & PEDS [address] [place], [place] [phone] Daily Packer MD [address] [place] [address] documented as of this encounter Visit Diagnoses Diagnosis Vitamin D deficiency- Primary documented in this encounter Care Teams Pediatric Physical Therapy Assistant Relationship Specialty Start Date End Date Daily Packer MD [address] [place] [address] PCP - General Internal Medicine 08/09/16 documented as of this encounter
--- OUTSIDE RECORDS SUMMARY | 2025-03-20 18:45 | XMS_ITS | Encounter Summary ---
Author Organization [employer] Address [address] [facility] 7t [place] [address] Care Team Providers Care Order Clerk Name Role Phone Daily Packer MD Primary Care Provider [phone]- [phone] Reason for Visit * Reason Onset Date Comments Med Refill 05/16/2023 Encounter Details Date Type Department Care Team (Late st Contact Info) Description 05/16/2023 Telephone [facility] MEDICINE [address] [place] [address] Daily Packer MD [address] [place] [address] Med Refill Social History Tobacco Use Types Packs/Day Years [...] * Telephone Encounter - Anni Jha - 05/16/2023 12:32 PM EST Tc from daughter requesting med refill on Albuterol Solution, bond underwriter don't see medication on Epic, bond underwriter don't have access to [employer]. documented in this encounter Plan of Treatment Upcoming Encounters Date Type Department Care Team (Late st Contact Info) Description 04/01/2025 9:30 AM EDT Office Visit [facility] MED & PEDS [address] [place] [address] Daily Packer MD [address] [place] [address] documented as of this encounter Visit Diagnoses Not on filedocumented in this encounter Care Teams Order Clerk Relationship Specialty Start Date End Date Daily Packer MD [address] [place] [address] PCP - General Internal Medicine 08/09/16 documented as of this encounter
[2025-03-25 22:18] LABS: TS Negative Control Passed; TS Panel A 0; TS Panel B 0; TS Positive Control Passed; TSpotTB Negative (Negative)
== END 2025-03-20 15:16 | disposition home or self-care (01) ==
LOC: HO.CHCLDS 15:15
PROVIDERS: Visit Provider Internal Medicine
DX: Z00.00 Encounter for general adult medical examination without abnormal findings (principal); Z11.1 Encounter for screening for respiratory tuberculosis
CPT/HCPCS: 36415; 86481

== ENCOUNTER 2025-04-01 09:56 | Outpatient (REF) | payer MEDICARE, SELFPAY ==
--- OUTSIDE RECORDS SUMMARY | 2025-04-01 09:30 | XMS_ITS | Encounter Summary ---
Author Organization [employer] Address [address] [facility] 7t [place] [address] Care Team Providers Care Environmental Education Specialist Name Role Phone Daily Packer MD Primary Care Provider [phone]- [phone] Encounter Details Date Type Department Care Team ([facility] st Contact Info) Description 04/01/2025 9:30 AM EDT Office Visit [facility] MED & PEDS [address] [place], [place] [phone] Daily Packer MD [address] [place] [address] Essential hypertension (Primary Dx); Encounter for immunization; Moderate persistent asthma without complication; Vitamin D deficiency; Moderate persistent asthma without complication Social History Tobacco Use Types Packs/Day Years Used Date Smoking Tobacco: Never Smokeless Tobacco: Never Depression Answer Date Recorded Patient Health Questionnaire-9 Score 5 04/01/2025 Patient Health Questionnaire-9 Score 5 04/01/2025 Last PHQ-9: Questionnaire Data Not on file 0 04/01/2025 Housing Stability Answer Date Recorded What is [...] Date Recorded Patient Health Questionnaire-2 Score 3 04/01/2025 Internet Access Answer Date Recorded Internet Access Q1 Yes 03/19/2024 Internet Access Q2 Not on file 03/19/2024 Comments Unknown Sex and Gender Information Value Date Recorded Sex Assigned at Female 05/03/2022 10:20 AM EDT Legal Sex Female 10:20 AM EDT Gender Identity Female 05/03/2022 10:20 AM EDT Sexual Orientation Straight 05/03/2022 10 :20 AM EDT documented as of this encounter Last Filed Vital Signs Vital Sign Reading Time Taken Comments Blood Pressure 124/77 04/01/2025 9:27 AM EDT Pulse 53 04/01/2025 9:27 AM EDT Temperature - - Respiratory Rate 20 04/01/2025 9:27 AM EDT Oxygen Saturation 95% 04/01/2025 9:27 AM EDT Inhaled Oxygen Concentration - - Weight 78.9 kg (174 lb) 04/01/2025 9:27 AM EDT Height 147.3 cm (4' 10 ) 04/01/2025 9:27 AM EDT Body Mass Index 36.37 04/01/2025 9:27 AM EDT documented in this encounter Functional Status * Over the past 2 weeks, how often have you been bothered by any of the following problems? Question Answer Date of Assessment Author Patient Health Questionnaire-2 Score 3 03/05 10:16 AM EDT Pat Curry MA * Little interest or pleasure in doing things Answer Date of Assessment Author Nearly every day 04/01/2025 10:16 AM EDT Pat Curry MA * Feeling down, depressed, or hopeless Answer Date of Assessment Author Not at all 04/01/2025 10:16 AM EDT Ally Curry MA * Trouble falling or staying asleep, or sleeping too much Answer Date of Assessment Author Several days 04/01/2025 10:16 AM EDAlly Connor MA * Feeling tired or having little energy Answer Date of Assessment Author Not at all 04/01/2025 10:16 AM Ally Mike MA * Poor appetite or overeating Answer Date of Assessment Author Not at all 04/01/2025 10:16 AM Ally Mike MA * Feeling bad about yourself - or that you are a failure or have let yourself or your family down Answer Date of Assessment Author Not at all 04/01/2025 10:16 AM Ally Mike MA * Trouble concentrating on things, such as reading the newspaper or watching television Answer Date of Assessment Author Several days 04/01/2025 10:16 AM Ally Mike MA * Moving or speaking so slowly that other people could have noticed? Or the opposite - being so fidgety or restless that you have been moving around a lot more than usual. Answer Date of Assessment Author Not at all 04/01/2025 10:16 AM Ally Mike MA * Thoughts that you would be better off or hurting yourself in some way Answer Date of Assessment Author Not at all 04/01/2025 10:16 AM Ally Mike MA * Patient Health Questionnaire-9 Score Answer Date of Assessment Author 5 04/01/2025 10:16 AM Ally Mike MA * How difficult have these problems made it for you to do your work, take care of things at home, or get along with other people? Answer Date of Assessment Author Not difficult at all 04/01/2025 10:16 AM Pat Slade MA documented as of this encounter Plan of Treatment Scheduled Orders Name Type Priority Associated Diagnoses Orde r Schedule TSH W/Reflex to FT4 Lab Routine Essential hypertension Expected: 04/01/2025 (Approximate), Expires: 04/01/2026 Vitamin D, 25-Hydroxy, Total, Immunoassay Lab Routine Vitamin D deficiency Expected: 04/01/2025 (Approximate), Expires: 04/01/2026 documented as of this encounter Visit Diagnoses Diagnosis Essential hypertension- Primary Unspecified essential hypertension Encounter for immunization Moderate persistent asthma without complication Vitamin D deficiency documented in this encounter Additional Health Concerns Assessment Noted Time PHQ-9 Depression Total Score: 5 04/01/20 25 10:16 AM EDT documented as of this encounter Care Teams Environmental Education Specialist Relationship Specialty Start Date End Date Daily Packer MD [address] [place] [address] PCP - General Internal Medicine 08/09/16 documented as of this encounter
--- OUTSIDE RECORDS SUMMARY | 2025-04-01 10:54 | XMS_ITS | Encounter Summary ---
Author Organization [employer] Address [address] [facility] 7t [place] [address] Care Team Providers Care Senior Net Engineer Name Role Phone Daily Packer MD Primary Care Provider [phone]- [phone] Reason for Visit * Reason Onset Date Comments Med Refill 05/16/2023 Encounter Details Date Type Department Care Team (Late st Contact Info) Description 05/16/2023 Telephone [facility] MEDICINE [address] [place] [address] Daily Packer MD [address] [place] [address] Med Refill Social History Tobacco Use Types [...] daughter requesting med refill on Albuterol Solution, life underwriter don't see medication on Epic, life underwriter don't have access to [employer]. documented in this encounter Plan of Treatment Not on file documented as of this encounter Visit Diagnoses Not on filedocumented in this encounter Care Teams Senior Net Engineer Relationship Specialty Start Date End Date Daily Packer MD [address] [place] [address] PCP - General Internal Medicine 08/09/16 documented as of this encounter
--- OUTSIDE RECORDS SUMMARY | 2025-04-01 10:54 | XMS_ITS | Encounter Summary ---
Author Organization [employer] Address [address] [facility] 7 [place] [address] Care Team Providers Care Intensive Care Anaesthetist Name Role Phone Daily Packer MD Primary Care Provider +1- [phone] Reason for Visit * Reason Comments Med Change Request Encounter Details Date Type Department Care Team ([facility] Contact Info) Description 04/01/2025 Refill [facility] CHC MED & PEDS [address] [place], [place] [phone] Daily Packer MD [address] [place] [address] Moderate persistent asthma without complication Social History [...] AM EDT documented as of this encounter Functional Status * Over the [...] 10:16 AM Ally Mike MA * Trouble falling or staying asleep, or sleeping too much Answer Date of Assessment Author Several days 04/01/2025 10:16 AM Ally Mike MA * Feeling tired or having little energy Answer Date of Assessment Author Not at all 04/01/2025 10:16 AM Ally Mike MA * Poor appetite or overeating Answer Date of Assessment Author Not at all 04/01/2025 10:16 AM [facility]OR[facility] Ally Curry MA * Feeling bad about yourself - or that you are a failure or have let yourself or your family down Answer Date of Assessment Author Not at all 04/01/2025 10:16 AM Ally Mike MA * Trouble concentrating on things, such as reading the newspaper or watching television Answer Date of Assessment Author Several days 04/01/2025 10:16 AM EDT Ally Curry MA * Moving or speaking so slowly that other people could have noticed? Or the opposite - being so fidgety or restless that you have been moving around a lot more than usual. Answer Date of Assessment Author Not at all 04/01/2025 10:16 AM EDT Ally Curry MA * Thoughts that you would be better off or hurting yourself in some way Answer Date of Assessment Author Not at all 04/01/2025 10:16 AM EDT Ally Curry MA * Patient Health Questionnaire-9 Score Answer Date of Assessment Author 5 04/01/2025 10:16 AM EDT Ally Curry MA * How difficult have these problems made it for you to do your work, take care of things at home, or get along with other people? Answer Date of Assessment Author Not difficult at all 04/01/2025 10:16 AM EDT Pat Mendieta MA documented as of this encounter Plan of Treatment Not on file documented as of this encounter Visit Diagnoses Diagnosis Moderate persistent asthma without complication documented in this encounter Additional Health Concerns Assessment Noted Time PHQ-9 Depression Total Score: 5 04/01/20 25 10:16 AM EDT documented as of this encounter Care Teams Intensive Care Anaesthetist Relationship Specialty Start Date End Date Daily Packer MD [address] [place] [address] [place] [address] PCP - General Internal Medicine 08/09/16 documented as of this encounter
--- OUTSIDE RECORDS SUMMARY | 2025-04-01 10:54 | XMS_ITS | Clinical Summary ---
Author Organization [employer] Address [address] [place] [address] 7t [place] [address] Care Team Providers Care Private Watchman Name Role Phone Daily Packer MD Primary Care Provider [phone]- [phone] Allergies No known active allergies Medications hydroCHLOROthia zide (HYDRODiuril) 12.5 MG tablet TOME SOLEDAD TABLETA TODOS [place] 90 tablet 3 023 Active acetaminophen (Tylenol 8 Hour) 650 MG ER tablet Take 1 tablet by mouth every 6 (six) hours if needed for mild pain. 023 Active docusate sodium (Colace) 100 MG capsule Take 1 capsule by mouth 2 times daily. 023 Active Oyster Shell Calcium/D3 500-10 MG-MCG tabletIndicatio ns:Vitamin D deficiency TOME SOLEDAD TABLETA TODOS [place] 90 tablet 4 024 Active Aspirin Low Dose 81 MG EC tablet TOME SOLEDAD TABLETA TODOS [place] 90 tablet 3 025 Active losartan (Cozaar) 100 MG tabletIndicatio ns:Essential hypertension TAKE 1 TABLET (100 MG) BY MOUTH ONCE PER DAY. 90 tablet 3 025 Active furosemide (Lasix) 20 MG tabletIndicatio ns:Essential hypertension TAKE 1 TABLET (20 MG) BY MOUTH ONCE PER DAY. 90 tablet 1 025 Active amLODIPine (Norvasc) 5 MG tabletIndicatio ns:Essential hypertension TAKE 1 TABLET (5 MG) BY MOUTH ONCE PER DAY. 90 tablet 3 025 Active albuterol (2.5 MG/3ML) 0.083% nebulizer solutionIndicat ions:Moderate persistent asthma without complication Take 3 mL (2.5 mg) by nebulization every 4 (four) hours if needed for wheezing. 75 mL 11 025 2025 Active albuterol (Ventolin HFA) 108 (90 Base) MCG/ACT inhalerIndicati ons:Moderate persistent asthma without complication INHALE 2 PUFF BY INHALATION ROUTE ONCE NEEDED 18 g 11 025 Active cholecalciferol (D3-1000) 25 MCG (1000 UT) tabletIndicatio ns:Vitamin D deficiency TAKE 1 TABLET BY MOUTH EVERY DAY 90 tablet 3 025 Active fluticasone furoate (Arnuity Ellipta) 100 MCG/ACT inhalerIndicati ons:Moderate persistent asthma without complication Inhale 1 puff Once per day. Rinse mouth with water after use to reduce aftertaste and incidence of candidiasis. Do not swallow. 1 each 11 025 2025 Active albuterol (2.5 MG/3ML) 0.083% nebulizer solutionIndicat ions:Moderate persistent asthma without complication Take 3 mL (2.5 mg) by nebulization every 4 (four) hours if needed for wheezing. 75 mL 11 023 2024 Discontinued(T herapy completed) meclizine (Antivert) 12.5 MG tabletIndicatio ns:Dizziness TOME SOLEDAD TABLETA DOS VECES AL D A CUANDO SEA NECESARIO 30 tablet 3 023 2024 Discontinued(T herapy completed) albuterol (Ventolin HFA) 108 (90 Base) MCG/ACT inhalerIndicati ons:Moderate persistent asthma without complication INHALE 2 PUFF BY INHALATION ROUTE ONCE NEEDED 18 g 11 023 2024 Discontinued(T herapy completed) fluticasone furoate (Arnuity Ellipta) 100 MCG/ACT inhaler Inhale 1 puff in the morning. Rinse mouth with water after use to reduce aftertaste and incidence of candidiasis. Do not swallow. 1 each 11 024 2024 Discontinued(R eorder (will not trigger notification to Pharmacy)) hydrocortisone (Anusol-HC) 2.5 % rectal cream Insert into the rectum 2 times daily. 28 g 3 024 2024 Discontinued(T herapy completed) Diclofenac Sodium 1 % gelIndications: Moderate persistent asthma without complication To apply to the affected area 3 times a day 100 g 024 2024 Discontinued(T herapy completed) amLODIPine (Norvasc) 5 MG tabletIndicatio ns:Essential hypertension Take 1 tablet (5 mg) by mouth Once per day. 30 tablet 11 024 2024 Discontinued cholecalciferol (D3-1000) 25 MCG (1000 UT) tablet TAKE 1 TABLET BY MOUTH EVERY DAY 90 tablet 3 024 2024 Discontinued cholecalciferol (D3-1000) 25 MCG (1000 UT) tablet TAKE 1 TABLET BY MOUTH EVERY DAY 90 tablet 3 025 2024 Discontinued(R eorder (will not trigger notification to Pharmacy)) Active Problems Problem Noted Date Diagnosed Date [...] Encounters Date Type Department Care Team Description 04/01/2025 9:30 AM EDT Office Visit [facility] [address] [place] [address] Daily Packer MD Essential hypertension (Primary Dx); Encounter for immunization; Moderate persistent asthma without complication; Vitamin D deficiency; Moderate persistent asthma without complication 04/01/2025 Refill [facility] [address] [place] [address] Daily Packer MD Moderate persistent asthma without complication 04/01/2025 Travel 03/29/2025 Telephone [facility] [address] [place] [address] Daily Packer MD Chart Prep 03/26/2025 Results Follow-Up [facility] [address] [place] [address] Daily Packer MD T-SPOT .TB 03/25/2025 Patient Outreach [facility] [address] [place], [place] [phone] Daily Packer MD Pre-visit Planning (SDOH screening completed on 09/17/24 ) 03/20/2025 2:30 PM EDT Clinical Support [facility] [address] [place] [address] Encounter for immunization; Routine general medical examination at a health care facility 03/20/2025 Travel 03/20/2025 Telephone [facility] [address] [place] [address] Daily Packer MD Lab Orders 03/19/2025 Refill [facility] [address] [place] [address] Daily Packer MD Essential hypertension 02/21/2025 Telephone [facility] [address] [place] [address] Daily Packer MD form 02/20/2025 Orders Only [facility] [address] [place] [address] Daily Packer MD Annual physical exam (Primary Dx) from Last 3 Months Immunizations Immunization Administration Dates Next Due Influenza High-dose Quadriva lent Preservative Free 03/31/2023,03/31/2021 Influenza Quadrivalent Adjuvanted 05/05/2022 Influenza injectable quadriv alent IIV4 with preservative 04/06/2018,05/24/2016 Influenza, High Dose Seasona l, Preservative Free 04/01/2025,03/26/2024,02/25/2020,04/05,04/07/2017 Influenza, IIV3, injectable 03/31/2023,1 07/05/2021,03/31/2021,04/05,04/06/2018,04/07/2017,05/24/2016 Influenza, Split (incl. lino fied surface antigen) 05/09/2013,05/09/2012 Pneumococcal Conjugate PCV 13 08/20/2014 Pneumococcal Polysaccharide PPSV23 10/23/2015 RSV Bivalent 03/19/2024 Tdap 03/20/2025,10/23/2015 Zoster, live 09/03/2014 Social [...] your housing situation today? I have cody sing 04/20/[address] you li [...] Pulse 53 04/01/2025 9:27 AM EDT Temperature 36.6 C (97.9 F) 09/24/2024 2:29 PM EDT Respiratory Rate 20 04/01/2025 9:27 AM EDT Oxygen Saturation 95% 04/01/2025 9:27 AM EDT Inhaled Oxygen Concentration - - Weight 78.9 kg (174 lb) 04/01/2025 9:27 AM EDT Height 147.3 cm (4' 10 ) 04/01/2025 9:27 AM EDT Body Mass Index 36.37 04/01/2025 9:27 AM EDT Plan of Treatment Health Maintenance Due Date Last Done Comments Alcohol/Substance Use Screening 1957 Zoster Vaccines (2 of 3) 10/29/2014 09/03/2014 Depression Screening 02/21/2025 02/22/2024, 02/22/20 24 COVID-19 Vaccine ( season) 2025 03/19/2024, 03/12/2022, 06/02/2021, Additional history exists SDOH Screening 09/17/2025 09/17/2024 Tobacco Screening 04/01/2026 04/01/2025 Lipid Panel 11/23/2027 11/22/2022, 11/23/2021 DTaP/Tdap/Td Vaccines (3 - Td or Tdap) 03/20/2035 03/20/2025, 10/23/2015 Pneumococcal Vaccine: 50+ Years Completed 10/23/2015, 08/20/2014 RSV Patients and Patients Aged 60 years or older Completed 03/19/2024 Influenza Vaccine Completed 04/01/2025, , 03/31/2023, Additional history exists HIB Vaccines Aged Out No longer eligi [...] on patient's age to complete this topic RSV under 20 months Aged Out No longe r eligible based on patient's age to complete this topic Rotavirus Vaccines Aged Out No longer eligible based on patient's age to complete this topic Procedures Procedure Name Priority Date/Time Associated Diagnosis Comments T-SPOT(R).TB Routine 03/20/2025 3:19 PM EDT Routine general medical examination at a health care facility LIPID PANEL, STANDARD Routine 11/22/2022 10:04 AM EDT Essential hypertension from Last 3 Months or Most Recently Relevant to Health Maintenance Results * T-SPOT??.TB (03/20/2025 3:19 PM EDT) T Spot TB Negative Negative [facility] Comment:A negative test resu lt does not exclude the possibilityof exposure to or infection with Mycobacteriumtuberculosis (M. tuberculosis). Patients with recentexposure to TB infected individuals exhibiting anegative T-SPOT.TB result should be considered forretesting within 6 weeks or if other relevant clinicalsymptoms indicate. Results from T-SPOT.TB testing mustbe used in conjunction with each individual'sepidemiological history, current medical status,and results of other diagnostic evaluations.The T-SPOT.TB test is qualitative and results arereported as positive, borderline, or negative, giventhat the test controls perform as expected. In linewith the Centers for Disease Control and Prevention's2010 recommendation to report quantitative measurementsalongside the qualitative result, the laboratoryprovides spot counts for informational purposes only.The T-SPOT.TB test should not be interpreted as aquantitative test. TS PANEL A 0 [facility] TS PANEL B 0 [facility] Negative Control Passed [facility] Positive Control Passed [facility] Comment:For additional infor mation, please refer tohttp://education.GameWith/faq/EOC864(This link is being provided for informational/educational purposes only.)THIS TEST WAS PERFORMED AT:[id number] [place] [address]NIBXESDVERONIKA NARAYAN MD,PHD 03/20/2025 3:19 PM EDT 03/20/2025 6:17 PM EDT us Daily Packer MD LAB BLOOD ORDERABLES Final Result [facility] [address] [place] [phone] * (ABNORMAL) Lipid Panel, Standard (11/22/2022 10:04 AM EDT) [facility] Cholesterol, Total 151 <200 mg/dL [facility] HDL Cholesterol 41(L) > OR = 50 mg/dL [employer] [facility] Triglycerides 94 <150 mg/dL [facility] [facility] [place] [facility] LDL Cholesterol 91 mg/dL (calc) [facility] Comment: Reference range: <100 Desirable range <100 mg/dL for primary prevention; <70 mg/dL for patients with CHD or diabetic patients with > or = 2 CHD risk factors. LDL-C is now calculated using the Beatriz calculation, which is a validated novel method providing better accuracy than the Friedewald equation in the estimation of LDL-C. Zen SS et al. JIE. 2013;310(19): 9682-6197 (http://education.Cirqle.nl/faq/THU350) Chol/HDLC Ratio 3.7 <5.0 (calc) [facility] [facility] Non-HDL Cholesterol 110 <130 mg/dL (calc) [facility] Comment: For patients with diabetes plus 1 major ASCVD risk factor, treating to a non-HDL-C goal of <100 mg/dL (LDL-C of <70 mg/dL) is considered a therapeutic option. Blood Venous blood specimen / Unknown 11/22/2022 10:04 AM EDT 11/22/2022 10:04 AM EDT Narrative [facility] - 11/23/2022 8:01 AM EDT FASTING:YES FASTING: YES us Daily Packer MD LAB BLOOD ORDERABLES Final Result [facility] [address], [place] [address] [facility] [address] [place] [address] from Last 3 Months or Most Recently Relevant to Health Maintenance Insurance [employer] (HMO D-SNP) [place] [id number] Care Teams Private Watchman Relationship Specialty Start Date End Date Daily Packer MD [address] [place] [address] PCP - General Internal Medicine 08/09/16
--- OUTSIDE RECORDS SUMMARY | 2025-04-01 10:54 | XMS_ITS | Encounter Summary ---
Author Organization [employer] Address [address] [facility] 7t [place] [address] Care Team Providers Care Internist Medical Doctor Md Name Role Phone Daily Packer MD Primary Care Provider [phone] Encounter Details Date Type Department Care Team (Latest Contact Info) Description 04/01/2025 Travel Social History Tobacco Use Types Packs/Day [...] 10:16 AM EDT Ally Curry MA * Feeling tired or having little energy Answer Date of Assessment Author Not at all 04/01/2025 10:16 AM EDT Ally Curry MA * Poor appetite or overeating Answer Date of Assessment Author Not at all 04/01/2025 10:16 AM EDT Ally Curry MA * Feeling bad about yourself - or that you are a failure or have let yourself or your family down Answer Date of Assessment Author Not at all 04/01/2025 10:16 AM EDT Ally Curry MA * Trouble concentrating on things, such [...] documented as of this encounter Care Teams Internist Medical Doctor Md Relationship Specialty Start Date End Date Daily Packer MD [address] [place] [address] PCP - General Internal Medicine 08/09/16 documented as of this encounter
--- OUTSIDE RECORDS SUMMARY | 2025-04-01 10:54 | XMS_ITS | Encounter Summary ---
Author Organization [employer] Address [address] [facility] 7t [place] [address] Care Team Providers Care Tanker Serviceman Name Role Phone Daily Packer MD Primary Care Provider [phone] Encounter Details Date Type Department Care Team ([facility] st Contact Info) Description 05/18/2023 Orders Only [facility] MED & PEDS [address] [place], [place] [phone] Daily Packer MD [address] [place] [address] Moderate persistent asthma without complication (Primary Dx) [...] Primary documented in this encounter Care Teams Tanker Serviceman Relationship Specialty Start Date End Date Daily Packer MD [address] [place] [address] PCP - General Internal Medicine 08/09/16 documented as of this encounter
--- OUTSIDE RECORDS SUMMARY | 2025-04-01 10:54 | XMS_ITS | Encounter Summary ---
Author Organization [employer] Address [address] [facility] 7t [place] [address] Care Team Providers Care Assembler Crimper Name Role Phone Daily Packer MD Primary Care Provider [phone]- [phone] Reason for Visit * Reason Onset Date Comments pcp order form 06/21/2024 Encounter Details Date Type Department Care Team ([facility] st Contact Info) Description 06/21/2024 Telephone [facility] MEDICINE [address] [place] [address] Daily Packer MD [address] [place] [address] pcp order form Social History Tobacco Use [...] - 06/21/2024 8:45 AM EST Tc from [facility] with [facility] requesting pcp order form that was sent over on 05/09/2024 [facility] gets signed by PCP and fax back to [facility]. [facility] Mayra FAX [phone] documented in this encounter Plan of Treatment Not on file documented as of this encounter Visit Diagnoses Not on filedocumented in this encounter Additional Health Concerns Assessment Noted Time PHQ-9 Depression Total Score: 7 02/22/20 24 3:07 PM EDT documented as of this encounter Care Teams Assembler Crimper Relationship Specialty Start Date End Date Daily Packer MD [address] [place] [address] PCP - General Internal Medicine 08/09/16 documented as of this encounter
--- OUTSIDE RECORDS SUMMARY | 2025-04-01 10:55 | XMS_ITS | Encounter Summary ---
Author Organization [email or web address] [facility] Address [address] [place] [address] Care Team Providers Care Personal Driver Name Role Phone Daily Packer MD Primary Care Provider [phone]- [phone] Reason for Visit * Reason Comments Med Refill Encounter Details Date Type Department Care Team ([facility] Contact Info) Description 07/23/2022 Refill [facility] MED & PEDS [address] [place] [address] Daily Packer MD [address] [place] [address] Vitamin D deficiency (Primary Dx) Social History [...] Primary documented in this encounter Care Teams Personal Driver Relationship Specialty Start Date End Date Daily Packer MD [address] [place] [address] PCP - General Internal Medicine 08/09/16 documented as of this encounter
--- OUTSIDE RECORDS SUMMARY | 2025-04-01 10:55 | XMS_ITS | Encounter Summary ---
Author Organization [employer] Address [address] [facility] 7t [place] [address] Care Team Providers Care Skidder Runner Name Role Phone Daily Packer MD Primary Care Provider [phone]- [phone] Encounter Details Date Type Department Care Team ([facility] st Contact Info) Description 02/20/2025 Orders Only [facility] MED & PEDS [address] [place], [place] [phone] Daily Packer MD [address] [place] [address] Annual physical exam (Primary Dx) Social History [...] documented as of this encounter Care Teams Skidder Runner Relationship Specialty Start Date End Date Daily Packer MD [address] [place] [address] PCP - General Internal Medicine 08/09/16 documented as of this encounter
--- OUTSIDE RECORDS SUMMARY | 2025-04-01 10:55 | XMS_ITS | Encounter Summary ---
Author Organization [employer] Address [address] [facility] 7 [place] [address] Care Team Providers Care Lead Systems Engineer Name Role Phone Daily Packer MD Primary Care Provider [phone]- [phone] Reason for Visit * Reason Onset Date Comments form 02/21/2025 Encounter Details Date Type Department Care Team ([facility] Contact Info) Description 02/21/2025 Telephone [facility] CHC MED & PEDS [address] [place], [place] [phone] Daily Packer MD [address] [place] [address] form Social History Tobacco Use Types Packs/Day [...] day program without form Contact Sabina at [phone] documented in this encounter Plan of Treatment Not on file documented as of this encounter Visit Diagnoses Not on filedocumented in this encounter Additional Health Concerns Assessment Noted Time PHQ-9 Depression Total Score: 7 02/22/20 24 3:07 PM EDT documented as of this encounter Care Teams Lead Systems Engineer Relationship Specialty Start Date End Date Daily Packer MD [address] [place] [address] PCP - General Internal Medicine 08/09/16 documented as of this encounter
--- OUTSIDE RECORDS SUMMARY | 2025-04-01 10:55 | XMS_ITS | Encounter Summary ---
Author Organization [employer] Address [address] [place] [address] 7 [place] [address] Care Team Providers Care Plate Preparer Name Role Phone Daily Packer MD Primary Care Provider [phone]- [phone] Encounter Details Date Type Department Care Team ([facility] st Contact Info) Description 01/03/2023 Orders Only [facility] CHC MED & PEDS [address] [place], [place] [phone] Daily Packer MD [address] [place] [address] Left inguinal pain (Primary Dx) Social History [...] quadrant documented in this encounter Care Teams Plate Preparer Relationship Specialty Start Date End Date Daily Packer MD [address] [place] [address] PCP - General Internal Medicine 08/09/16 documented as of this encounter
--- OUTSIDE RECORDS SUMMARY | 2025-04-01 10:55 | XMS_ITS | Encounter Summary ---
Author Organization [employer] Address [address] [place] [address] [address] [place] [address] Care Team Providers Care Spinner Operator Name Role Phone Daily Packer MD Primary Care Provider [phone]- [phone] Encounter Details Date Type Department Care Team ([facility] st Contact Info) Description 09/27/2022 Orders Only [facility] CHC MED & PEDS [address] [place], [place] [phone] Jennifer Su LPN Social History Tobacco Use [...] on filedocumented in this encounter Care Teams Spinner Operator Relationship Specialty Start Date End Date Daily Packer MD [address] [place] [address] PCP - General Internal Medicine 08/09/16 documented as of this encounter
--- OUTSIDE RECORDS SUMMARY | 2025-04-01 10:55 | XMS_ITS | Encounter Summary ---
Author Organization [employer] [facility] Address [address] [place] [address] [address] [place] [address] Care Team Providers Care Screen Printing Paster Name Role Phone Daily Packer MD Primary Care Provider [phone]- [phone] Encounter Details Date Type Department Care Team ([facility] st Contact Info) Description 02/07/2023 Orders Only [facility] MED & PEDS [address] [place], [place] [phone] Jennifer Su LPN Social History Tobacco Use [...] on filedocumented in this encounter Care Teams Screen Printing Paster Relationship Specialty Start Date End Date Daily Packer MD [address] [place] [address] PCP - General Internal Medicine 08/09/16 documented as of this encounter
--- OUTSIDE RECORDS SUMMARY | 2025-04-01 10:55 | XMS_ITS | Encounter Summary ---
Author Organization [employer] Address [address] [facility] 7t [place] [address] Care Team Providers Care Scuba Dive Training Instructor Name Role Phone Daily Packer MD Primary Care Provider [phone] Encounter Details Date Type Department Care Team (Late st Contact Info) Description 09/14/2024 Orders Only [facility] MEDICINE [address] [place] [address] Daily Packer MD [address] [place] [address] Functional urinary incontinence Social History Tobacco Use [...] documented as of this encounter Care Teams Scuba Dive Training Instructor Relationship Specialty Start Date End Date Daily Packer MD [address] [place] [address] PCP - General Internal Medicine 08/09/16 documented as of this encounter
--- OUTSIDE RECORDS SUMMARY | 2025-04-01 10:55 | XMS_ITS | Encounter Summary ---
Author Organization [facility] Address [address] [place] [address] Care Team Providers Care Instructional Leader Name Role Phone Daily Packer MD Primary Care Provider +1- [phone] Reason for Visit * Reason Comments Med Change Request Encounter Details Date Type Department Care Team ([facility] Contact Info) Description 02/08/2023 Refill [facility] MED & PEDS [address] [place] [address] Daily Packer MD [address] [place] [address] Mild persistent asthma without complication (Primary Dx) [...] Primary documented in this encounter Care Teams Instructional Leader Relationship Specialty Start Date End Date Daily Packer MD [address] [place] [address] PCP - General Internal Medicine 08/09/16 documented as of this encounter
--- OUTSIDE RECORDS SUMMARY | 2025-04-01 10:55 | XMS_ITS | Encounter Summary ---
Author Organization [employer] Address [address] [facility] 7 [place] [address] Care Team Providers Care Renewals Manager Name Role Phone Daily Packer MD Primary Care Provider +1- [phone] Reason for Visit * Reason Onset Date Comments Chart Prep 03/29/2025 Encounter Details Date Type Department Care Team ([facility] st Contact Info) Description 03/29/2025 Telephone [facility] CHC MED & PEDS [address] [place], [place] [phone] Daily Packer MD [address] [place] [address] Chart Prep Social History Tobacco Use Types Packs/Day Years [...] encounter Miscellaneous Notes * Telephone Encounter - Virginia Kidd MA - 03/29/2025 10:50 AM EDT Chart Prep Labs: not done Images: not applicable Referrals: not applicable Vaccines due: Covid, Flu, and Zoster Screenings: not applicable Overdue care gaps: SBIRT and PHQ-9 documented in this encounter Plan of Treatment Not on file documented as of this encounter Visit Diagnoses Not on filedocumented in this encounter Additional Health Concerns Assessment Noted Time PHQ-9 Depression Total Score: 7 02/22/20 24 3:07 PM EDT documented as of this encounter Care Teams Renewals Manager Relationship Specialty Start Date End Date Daily Packer MD [address] [place] [address] [place] [address] PCP - General Internal Medicine 08/09/16 documented as of this encounter
--- OUTSIDE RECORDS SUMMARY | 2025-04-01 10:55 | XMS_ITS | Encounter Summary ---
Author Organization [employer] Address [address] [facility] 7t [place] [address] Care Team Providers Care Shovel Log Loader Operator Name Role Phone Daily Packer MD Primary Care Provider [phone] Encounter Details Date Type Department Care Team ([facility] st Contact Info) Description 03/26/2025 Results [facility] [address] [place], [place] [phone] Daily Packer MD [address] [place] [address] [employer]-SP[employer] .TB Social History Tobacco Use Types Packs/Day Years [...] documented as of this encounter Care Teams Shovel Log Loader Operator Relationship Specialty Start Date End Date Daily Packer MD [address] [place] [id number] PCP - General Internal Medicine 08/09/16 documented as of this encounter
--- OUTSIDE RECORDS SUMMARY | 2025-04-01 10:55 | XMS_ITS | Encounter Summary ---
Author Organization [employer] Address [address] [facility] 7t [place] [address] Care Team Providers Care Health Diagnostics Teacher Name Role Phone Daily Packer MD Primary Care Provider [phone] Encounter Details Date Type Department Care Team (Late st Contact Info) Description 11/30/2024 Orders Only [facility] [address] [place] [address] ProviderDavid MD Social History Tobacco Use Types [...] on file documented as of this encounter Procedures Procedure Name Priority Date/Time Associated Diagnosis Comments XR NECK SOFT TISSUE Routine 11/29/2024 9:50 AM EDT XR NECK SOFT TISSUE Routine 11/29/2024 9:50 AM EDT documented in this encounter Results * XR Neck Soft Tissue (11/29/2024 9:50 AM EDT) Anatomical Region Laterality Modality Head, Neck Radiographic Micaela ging us Historical Provider IMDeion XR PROCEDURES Final R esult * XR Neck Soft Tissue (11/29/2024 9:50 AM EDT) Anatomical Region Laterality Modality Head, Neck Radiographic Micaela ging us Historical Provider IMDeion XR PROCEDURES Final R esult documented in this encounter Visit Diagnoses Not on filedocumented in this encounter Additional Health Concerns Assessment Noted Time PHQ-9 Depression Total Score: 7 02/22/20 24 3:07 PM EDT documented as of this encounter Care Teams Health Diagnostics Teacher Relationship Specialty Start Date End Date Daily Packer MD [address] [place] [id number] PCP - General Internal Medicine 08/09/16 documented as of this encounter
--- OUTSIDE RECORDS SUMMARY | 2025-04-01 10:55 | XMS_ITS | Encounter Summary ---
Author Organization [employer] Address [address] [facility] 7[address] [place] [address] Care Team Providers Care Environmental Specialist Name Role Phone Daily Packer MD Primary Care Provider [phone] Reason for Visit * Reason Onset Date Comments Appointment Request 12/06/2023 Encounter Details Date Type Department Care Team ([facility] st Contact Info) Description 12/06/2023 Telephone [facility] MEDICINE [address] [place] [address] Daily Packer MD [address] [place] [address] Appointment Request Social History Tobacco Use Types [...] appt with PCP per last visit notes, engineering writer don't have open spaces before February. documented in this encounter Plan of Treatment Not on file documented as of this encounter Visit Diagnoses Not on filedocumented in this encounter Care Teams Environmental Specialist Relationship Specialty Start Date End Date Daily Packer MD [address] [place] [id number] PCP - General Internal Medicine 08/09/16 documented as of this encounter
--- OUTSIDE RECORDS SUMMARY | 2025-04-01 10:55 | XMS_ITS | Encounter Summary ---
Author Organization [facility] Address [address] [place] [address] Care Team Providers Care Handkerchief Sample Clerk Name Role Phone Daily Packer MD Primary Care Provider [phone] Encounter Details Date Type Department Care Team (Late st Contact Info) Description 03/17/2023 [facility] Information Management [address] [place], [place] [phone] Daily Packer MD [address] [place] [address] Social History Tobacco Use Types Packs/Day Years [...] on filedocumented in this encounter Care Teams Handkerchief Sample Clerk Relationship Specialty Start Date End Date Daily Packer MD [address] [place] [address] PCP - General Internal Medicine 08/09/16 documented as of this encounter
--- OUTSIDE RECORDS SUMMARY | 2025-04-01 10:55 | XMS_ITS | Encounter Summary ---
Author Organization [employer] Address [address] [facility] 7t [place] [address] Care Team Providers Care Enterprise Resource Analyst Name Role Phone Daily Packer MD Primary Care Provider [phone] Encounter Details Date Type Department Care Team (Late st Contact Info) Description 02/23/2024 Orders Only [facility] [address] [place] [address] Daily Packer MD [address] [place] [address] Social History Tobacco Use Types Packs/Day Years [...] documented as of this encounter Care Teams Enterprise Resource Analyst Relationship Specialty Start Date End Date Daily Packer MD [address] [place] [address] PCP - General Internal Medicine 08/09/16 documented as of this encounter
--- OUTSIDE RECORDS SUMMARY | 2025-04-01 10:55 | XMS_ITS | Encounter Summary ---
Author Organization [employer] [facility] Address [address] [place] [address] Care Team Providers Care Manager Core Name Role Phone Daily Packer MD Primary Care Provider [phone] Encounter Details Date Type Department Care Team (Latest Contact Info) Description 08/04/2018 [facility] Dental, Provider, DDS Social History Tobacco [...] on filedocumented in this encounter Care Teams Manager Core Relationship Specialty Start Date End Date Daily Packer MD [address] [place] [id number] PCP - General Internal Medicine 08/09/16 documented as of this encounter
--- OUTSIDE RECORDS SUMMARY | 2025-04-01 10:55 | XMS_ITS | Clinical Summary ---
Author Organization [address] [facility] Address [address] [place] [address] Phone Care Team Providers Care Wrapping Checker Name Role Phone Diane Mcfadden MD Primary Care Provider [phone] Allergies No known active allergies Medications albuterol HFA (PROVENTIL HFA;VENTOLIN HFA) 108 (90 Base) MCG/ACT inhaler Inhale into the lungs. Active hydroCHLOROthiaz lavon 12.5 mg tablet Take 1 tablet (12.5 mg total) by mouth 1 (one) time each day. Active losartan-hydroCH LOROthiazide (HYZAAR) 100-12.5 mg per tablet Take 1 tablet by mouth 1 (one) time each day. Active Active Problems Problem Noted Date Diagnosed Date Bunion, right foot 05/25/2024 Essential hypertension 05/25/2024 Class 2 obesity 05/25/2024 Depression 05/25/2024 Medical History Medical History Date Comments HTN (hypertension) Asthma Social History Tobacco Use Types Packs/Day Years Used Date Smoking Tobacco: Never Smokeless Tobacco: Never Comments Unknown Sex and Gender Information Value Date Recorded Sex Assigned at Not on file Legal Sex Female 1:00 AM EST Gender Identity Not on file Sexual Orientation Not on file Obstetrics History Last Filed Vital Signs Vital Sign Reading Time Taken Comments Blood Pressure 115/59 11/29/2024 1:01 PM EDT Pulse 58 11/29/2024 1:01 PM EDT Temperature 37.1 C (98.8 F) 11/29/2024 1:01 PM EDT Respiratory Rate 16 11/29/2024 1:01 PM EDT Oxygen Saturation 100% 11/29/2024 1:01 PM EDT Inhaled Oxygen Concentration - - Weight 72.6 kg (160 lb) 11/29/2024 1:04 PM EDT Height 157.5 cm (5' 2 ) 11/29/2024 1:04 PM EDT Body Mass Index 29.26 11/29/2024 1:04 PM EDT Plan of Treatment Health Maintenance Due Date Last Done Comments Zoster Vaccines (2 of 3) 10/29/2014 09/03/2014 Falls Risk Assessment 06/06/2022 Medicare Annual Wellness Visit 06/06/2022 Social Influencers of Health Screening 06/06/2022 Hypertension/CHF/CAD Annual BMP Blood Test 05/25/2024 Depression Screening 07/04/2024 COVID-19 Vaccine ( season) 2025 03/19/2024, 03/12/2022, 06/02/2021, Additional history exists Influenza Vaccine (#1) 2025 , 03/31/2023, 05/05/2022, Additional history exists DTaP,Tdap,and Td Vaccines (2 - Td or Tdap) 10/22/2025 10/23/2015 Cholesterol Screening (Lipid Panel) 11/23/2027 11/22/2022 Osteoporosis Screening (Bone Density Screening) 02/07/2029 02/07/2019 Pneumococcal Vaccine: 50+ Years Completed 10/23/2015, 08/20/2014 RSV Immunization Adult Patients Completed 03/19/2024 HIB Vaccines Aged Out No longer eligi [...] on patient's age to complete this topic MMR Vaccines Aged Out No longer eligi ble based on patient's age to complete this topic Meningococcal ACWY Vaccine Aged Out N o longer eligible based on patient's age to complete this topic Meningococcal B Vaccine Aged Out No l onger eligible based on patient's age to complete this topic RSV Immunization Patients Under 20 months Aged Out No longer eligible based on patient's age to complete this topic Varicella Vaccines Aged Out No longer eligible based on patient's age to complete this topic Procedures Procedure Name Priority Date/Time Associated Diagnosis Comments [facility]IAL [facility]KELETON Routine 02/07/2019 5:01 PM EDT Asymptomatic menopausal state from Last 3 Months or Most Recently Relevant to Health Maintenance Results * [facility]KELETON (02/07/2019 5:01 PM EDT) Anatomical Region Laterality Modality Mammography 02/05/2019 12:4 1 PM EDT Narrative 02/07/2019 5:01 PM EDT [facility] Diagnostic Imaging Department [address] [place] [address] Patient: ANDRADEDEO /Age/Sex: 1945 - 73 - F Unit#: [id number] [facility] Ordering Physician: YAZMIN PACKER MD [facility] Dexa Axial Skeleton - 02/05/19 - 1349 [facility] Dexa Axial Skeleton INDICATION: POSTMENOPAUSAL Technique: Bone densitometry was performed utilizing dual energy x-ray absorptiometry (DEXA). The lumbar spine is evaluated in the AP projection from L1 through L3. L4 was omitted because of sclerotic changes. The proximal femora are evaluated in the AP projection bilaterally. COMPARISON: None The patient is taking calcium and vitamin D supplements. Findings: AP spine: Bone mineral density: 1.033 gm/cm2 T-score: -1.1 Femoral total (mean, bilateral): Bone mineral density: 1.037 gm/cm2 T-score: 0.2 IMPRESSION: Findings suggesting osteopenia, placing the patient at risk for fracture. Compared to the prior exam, no evidence for adverse interval change The FRAX result suggests a 10 year probability of major osteoporotic fracture of 7.8 % and hip fracture of 1.2%. 10 year probability of osteoporotic fracture may be lower than FRAX estimate if patient has received treatment. [id number] A report detailing these results has been enclosed. Dictating Physician: ELMA HINTON MD Electronically Signed by: ELMA HINTON MD Dic Date/Time: 02/07/191657 Sign date/Time: 02/07/19 1701 Procedure Note Elma Hinton - 06/23/2022 [facility] Diagnostic Imaging Department [address] [place] [address] Patient: DEO ANDRADE /Age/Sex: 1945 - 73 - F Unit#: [id number] Location/Status: [facility] CLI Mnemonic[facility] Ordering Physician: YAZMIN PACKER MD [facility] Dexa Axial Skeleton - 02/05/191348 [facility] Dexa Axial Skeleton INDICATION: POSTMENOPAUSAL Technique: Bone densitometry was performed utilizing dual energy x-ray absorptiometry (DEXA). The lumbar spine is evaluated in the AP projectionfrom L1 through L3. L4 was omitted because of sclerotic changes. The proximalfemora are evaluated in the AP projection bilaterally. COMPARISON: None The patient is taking calcium and vitamin D supplements. Findings: AP spine: Bone mineral density: 1.033 gm/cm2 T-score: -1.1 Femoral total (mean, bilateral): Bone mineral density: 1.037 gm/cm2 T-score: 0.2 IMPRESSION: Findings suggesting osteopenia, placing the patient at risk forfracture. Compared to the prior exam, no evidence for adverse interval change The FRAX result suggests a 10 year probability of major osteoporoticfracture of 7.8 % and hip fracture of 1.2%. 10 year probability of osteoporotic fracture may be lower than FRAXestimate if patient has received treatment. [id number] A report detailing these results has been enclosed. Dictating Physician: ELMA HINTON MD Electronically Signed by: ELMA HINTON MD Dic Date/Time: 02/07/19 1658 Sign date/Time: 02/07/19 1701 us Yazmin Packer MD IMG BI PROCEDURES Final R esult from Last 3 Months or Most Recently Relevant to Health Maintenance Insurance [facility] MEDICARE Member Subscriber Plan / Payer (Ef fective 2011-Present) Name:Deo Downs Relation to Subscriber:Self Name:Deo Andrade Payer ID:[id number] Group ID:[id number] Type:Not on file Address: [place] [address] [address] [id number] Care Teams Wrapping Checker Relationship Specialty Start Date End Date Diane Mcfadden MD [address] [place] [address] PCP - General 08/11/15
[2025-04-01 14:45] LABS: Alanine Aminotransferase 6 U/L (0-31); Albumin Level 3.9 g/dL (3.5-5.0); Alkaline Phosphatase 65 U/L (39-117); Anion Gap 11 (12-20); Aspartate Amino Transferase 25 U/L (5-31); Blood Urea Nitrogen 16 mg/dL (9-16); Calcium 9.6 mg/dL (8.4-10.2); Carbon Dioxide 28 mmol/L (22-29); Chloride 108 mmol/L (96-108); Cholesterol 142 mg/dL (<200); Estimated Glomerular Filt Rate > 60; HDL Cholesterol 33 mg/dL (>40); Potassium 4.2 mmol/L (3.3-5.1); Sodium 143 mmol/L (135-145); Total Protein 7.0 g/dL (6.5-8.0); Triglycerides 96 mg/dL (<150)
== END 2025-04-01 09:57 | disposition home or self-care (01) ==
LOC: HO.CHCLDS 09:56
PROVIDERS: Visit Provider Internal Medicine
DX: I10 Essential (primary) hypertension (principal); E55.9 Vitamin D deficiency, unspecified; Z13.1 Encounter for screening for diabetes mellitus
CPT/HCPCS: 36415; 80053; 80061; 82306; 83036; 84443